=== PATIENT | female | born 1975 | race Caucasian/White ===

== ENCOUNTER 2016-06-14 16:59 | Inpatient (IN) | payer OTHER ==
--- NOTE | ~2016-06-14 | HP ---
Unit #: [id number] #: [id number] Patient: LYRIC GERBER [id number] [place] [address] [id number] I MR#: [id number] NAME: LYRIC GERBER ROOM: P207 Age: 40 Sex: F Admission Date: 06/14/2016 : 1975 Attending Physician: Cipriano Gee M.D. Admitting Physician: Cipriano Gee M.D. Primary Care Physician: Generic Doctor Not In System HISTORY AND PHYSICAL HISTORY OF PRESENT ILLNESS Lyric is a 40-year-old male admitted on 06/14/2016 for detox from meth, opioids and cocaine. PAST MEDICAL HISTORY Current strep pharyngitis infection. PAST SURGICAL HISTORY Partial hysterectomy SOCIAL HISTORY Smokes 1 1/2 packs of cigarettes daily. Binge alcohol use and daily use of meth, pain pills, cocaine and marijuana. She is currently and living with her . FAMILY HISTORY Noncontributory. REVIEW OF SYSTEMS CONSTITUTIONAL: No fever or chills. HEENT: Denies any sore throat, ear pain or runny nose. CARDIOVASCULAR: Denies chest pain, irregular heart rhythm or palpitations. CHEST: Denies shortness of breath or cough. No hemoptysis. GASTROINTESTINAL: Denies nausea, vomiting, diarrhea or chronic constipation. ENDOCRINE: Denies history of increased thirst or urination. No recent significant weight loss or gain. GENITOURINARY: Denies dysuria, frequency, or hematuria. SKIN: Denies any rashes. HEMATOLOGIC: Denies history of increased bleeding or bruising. MUSCULOSKELETAL: Denies any hot, swollen joints. No generalized muscle pain. NEUROLOGIC: Denies problems with vision or speech. No frequent, severe headaches. No numbness, tingling or weakness in any extremities. Denies loss of bladder or bowel control. CURRENT MEDICATIONS Amoxicillin 500 mg p.o. t.i.d. ALLERGIES No known drug allergies. Unit #: [id number] #: [id number] Patient: LYRIC GERBER PHYSICAL EXAMINATION GENERAL: Alert, oriented, in no acute distress. VITAL SIGNS: Blood pressure 142/83, heart rate 70, respirations 20, temperature 97.9. HEIGHT: 4 foot 9 inches. WEIGHT: 107 pounds. SKIN: Warm and dry without rash or lesion. HEENT: Normocephalic. TMs not viewed. Oral and nasal passages clear. Conjunctivae clear. PERRLA. EOMs intact. NECK: Supple without lymphadenopathy or thyromegaly. HEART: Regular rate and rhythm without murmur. LUNGS: Clear. ABDOMEN: Soft, nontender, without masses or hepatosplenomegaly. : Not done. EXTREMITIES: No evidence of cyanosis, clubbing or edema. Moves all without focal deficit. NEUROLOGICAL: Grossly within normal limits. Cranial Nerves: II: Visual green are intact. III, IV AND : Extraocular movements are intact. Pupils are equal, round and reactive to light. V: Facial sensation is grossly normal. VII: Facial movements and expression are normal. VIII: Auditory acuity grossly intact. IX, X: Uvula is midline. Phonation is normal. XI: Patient shrugs shoulders and turns head normally. XII: Tongue protrudes in the midline. Sensory and Motor Function: Sensory and motor sensation is grossly normal. Motor: moves all extremities well. Coordination: Gait is normal. Deep Tendon Reflexes: Intact. IMPRESSION 1. Psychiatric admission. 2. Current strep pharyngitis. The patient is being treated with amoxicillin and her last dose is due this evening. RECOMMENDATIONS Psychiatric, per psychiatrist. MEDICAL: I see no contraindications to participating in facility's activities. MEDICAL PROGNOSIS Good. MEDICAL CONDITION Stable. Dictated by... Paola Ortiz/daniel TD: 06/15/2016 19:32 JOB #: [id number] Unit #: [id number] #: [id number] Patient: LYRIC GERBER HISTORY AND PHYSICAL Page 1 of 1 X ALICIA CAMARILLO APRN HISTORY AND PHYSICAL
--- NOTE | ~2016-06-14 | PN ---
Unit #: [id number] #: [id number] Patient: LEANDRA GERBER [id number] [facility] [address] [place] [address] [id number] I MR#: [id number] NAME: LEANDRA GERBER ROOM: P207 Age: 40 Sex: F Admission Date: 06/14/2016 : 1975 Attending Physician: Cipriano Gee M.D. Admitting Physician: Cipriano Gee M.D. Primary Care Physician: Generic Doctor Not In System [facility] PROGRESS NOTES DATE OF SERVICE: 06/15/2016 SUBJECTIVE Ms. Gerber is a 40-year-old white female who was seen today and chart was reviewed, and case was discussed with staff. She has been anxious, withdrawn, rather seclusive to herself. Meanwhile, she has been cooperative with treatment recommendation and has been complaining with persistent depressive symptoms and suicidal ideations. MENTAL STATUS EXAMINATION Young white female who was casually dressed with fair personal hygiene, appears to be in no acute distress or discomfort. She was awake and alert on interaction with intact orientation. Her mood was anxious with a congruent affect. She reports having suicidal ideation, but denies any homicidal ideation. Her insight and judgment remain slightly impaired. TREATMENT PLAN 1. We will continue on her current treatment protocol. We will monitor her response to medications and make further adjustments as needed. 2. We will continue to follow up. Dictated by... Tamir Hammond/justusl TD: 06/16/2016 13:05 JOB #: [id number] [facility] PROGRESS NOTES Page 1 of 1 X Cipriano Gee MD PROGRESS NOTE
--- NOTE | ~2016-06-14 | PA ---
Unit #: [id number] #: [id number] Patient: LEANDRA GERBER [id number] [facility] [address] [place] [address] [id number] I MR#: [id number] NAME: LEANDRA GERBER ROOM: [facility] Age: 40 Sex: F Admission Date: 06/14/2016 : 1975 Date of Assessment: Attending Physician: Cipriano Gee M.D. Admitting Physician: Cipriano Gee M.D. Primary Care Physician: Generic Doctor Not In System PSYCHIATRIC ASSESSMENT IDENTIFYING DATA Ms. Gerber is a 40-year-old white female, who is a resident of [place], [place] and is self-referred to the hospital on a voluntary basis and is accompanied by her . CHIEF COMPLAINT "I've addiction." HISTORY OF PRESENT ILLNESS Ms. Gerber is a 40-year-old white female, who was brought to the hospital by her stating that she has addiction to pain medications as she reports that she has been taking Lortab mg a day for the last 7 years and Klonopin 8 mg a day for the last 3 years and methamphetamine by smoking and snorting about half a gram daily for the last year and reports increasing depression, anxiety, irritability, and experiencing significant isolation, daily crying spells, no motivation, no energy, feelings of hopelessness and helplessness, but denies any suicidal ideations, intent, or plan. The patient reports that has been in the recovery for the past 6 months and encouraged her to come here to get treatment as she reports she overdosed two weeks ago and had to be hospitalized and was given Narcan. SUBSTANCE ABUSE HISTORY The patient has extensive history of substance abuse and dependence including alcohol, cannabis, cocaine, opioids, amphetamines, and benzodiazepines, and currently she reports that she has been mixing opioids, benzos, and methamphetamine on a regular basis. PAST PSYCHIATRIC HISTORY The patient has had a history of inpatient chemical dependency and psychiatric treatment at [facility] in 2013, and currently, she is not active in any treatment program, is not seeing a psychiatrist, not taking her psychotropic medications. PAST MEDICAL HISTORY The patient's medical history is insignificant. ALLERGIES No known medication allergies. PERSONAL AND SOCIAL HISTORY A 40-year-old white female, who reports that she is and lives at home with her and has fairly decent social support system. Unit #: [id number] #: [id number] Patient: LEANDRA GERBER MENTAL STATUS EXAMINATION Middle-aged white female, who was casually dressed with fair personal hygiene, appears to be in no acute distress or discomfort. She was awake and alert on interaction with intact orientation to time, place, and person. Her mood was anxious and depressed with a congruent affect. Her speech was slow and restricted in content. Her thought processes were disorganized with some looseness of associations and paranoid ideations. She denies any suicidal or homicidal ideations. Her insight and judgment remain significantly impaired. DIAGNOSTIC IMPRESSION Psychiatric: Major depressive disorder, recurrent, moderate, without psychotic features; opioid dependence, moderate and acute withdrawals; benzodiazepine dependence, moderate and acute withdrawals; methamphetamine dependence, moderate. Medical: None. Stressors: Moderate psychosocial stressors. TREATMENT PLAN 1. The patient has presented with history of substance abuse and mood disorder and has been decompensating and will need inpatient hospitalization for safety and stabilization. We will start her back on her home medications. We will adjust the medications and monitor response. 2. Supportive therapy was provided to the patient. 3. Safe, structured, and nourishing environment will be provided. ESTIMATED LENGTH OF STAY 5 to 7 days. ABILITY TO HELP SELF Limited. WILLINGNESS TO HELP SELF The patient appears to be willing to help self. STRENGTHS 1. Communicative. 2. Cooperative. PROBLEMS 1. Chronic chemical dependency. 2. Chronic dysphoric symptoms. 3. Poor social support system. DISCHARGE CRITERIA This will be contingent upon the patient's ability to go through detox without having any significant withdrawal symptoms as well as her ability to stay safe to herself, particularly after discharge from the hospital. Dictated by... Tamir Hammond/bud TD: 06/16/2016 01:15 JOB #: [id number] Unit #: [id number] #: [id number] Patient: LEANDRA GERBER PSYCHIATRIC ASSESSMENT Page 1 of 1 X Cipriano Gee MD X PSYCHIATRIC ASSESSMENT
--- NOTE | ~2016-06-14 | PN ---
Unit #: [id number] #: [id number] Patient: LEANDRA GERBER [id number] [facility] [address] [place] [address] [id number] I MR#: [id number] NAME: LEANDRA GERBER ROOM: P207 Age: 40 Sex: F Admission Date: 06/14/2016 : 1975 Attending Physician: Cipriano Gee M.D. Admitting Physician: Cipriano Gee M.D. Primary Care Physician: Generic Doctor Not In System [facility] PROGRESS NOTES DATE June 17, 2016 DISCUSSION Ms. Gerber is a 40-year-old white female, who was seen today and chart was reviewed and the case was discussed with the staff. She has been anxious, withdrawn, but has not shown any agitation or irritability, and has been cooperative with the treatment recommendations and has been taking the medications, and tolerating them fairly well with no reported side effects. MENTAL STATUS EXAMINATION Middle-aged white female, who was casually dressed with fair personal hygiene and appears to be in no acute distress or discomfort. She was awake and alert on interaction with intact orientation. Her mood is anxious with a congruent affect. The patient denies any suicidal or homicidal ideations. Her insight and judgment remain slightly impaired. TREATMENT PLAN 1. We will continue her on her current medications and treatment protocol, and will monitor her response to the medications, and make further adjustments as needed. 2. We will continue to followup. Dictated by... Tamir Hammond/jesse TD: 06/18/2016 05:23 JOB #: [id number] Unit #: [id number] #: [id number] Patient: LEANDRA GERBER PROGRESS NOTES Page 1 of 1 X Cipriano Gee MD PROGRESS NOTE
--- NOTE | ~2016-06-14 | PN ---
Unit #: [id number] #: [id number] Patient: LEANDRA GERBER [id number] [facility] [address] [place] [address] [id number] I MR#: [id number] NAME: LEANDRA GERBER ROOM: P207 Age: 40 Sex: F Admission Date: 06/14/2016 : 1975 Attending Physician: Cipriano Gee M.D. Admitting Physician: Cipriano Gee M.D. Primary Care Physician: Generic Doctor Not In System [facility] PROGRESS NOTES DATE 06/16/2016 DISCUSSION Ms. Gerber is a 40-year-old white female who was seen today, chart was reviewed and case was discussed with the staff. She appears to be doing much better and appears to be more comfortable than yesterday and states detox medicine has been working and she has been able to come out of her room and attend groups and has been able to socialize and interact. She is expressing desire to be able to go to prison rehab start from detox. MENTAL STATUS EXAMINATION Middle age black female who was casually dressed with fair personal hygiene and appears to be in no acute distress or discomfort. She was awake and alert with intact orientation. Her mood was anxious with a congruent affect. Patient denies any suicidal or homicidal ideation. Her insight and judgment remain slightly impaired. TREATMENT PLAN Will continue on current medications and treatment protocol. We will monitor response to medication and make further adjustments as needed. We will continue to follow up. Dictated by... Tamir Hammond/negrito TD: 06/17/2016 11:44 JOB #: [id number] Unit #: [id number] #: [id number] Patient: LEANDRA GERBER [facility] PROGRESS NOTES Page 1 of 1 X Cipriano Gee MD PROGRESS NOTE
--- NOTE | ~2016-06-14 | DS ---
Unit #: [id number] #: [id number] Patient: LEANDRA GERBER [id number] [facility] [address] [place] [address] [id number] I MR#: [id number] NAME: LEANDRA GERBER ROOM: [facility] Age: 40 Sex: F Admission Date: 06/14/2016 : 1975 Discharge Date: 06/18/2016 Attending Physician: Cipriano Gee M.D. Primary Care Physician: Generic Doctor Not In System DISCHARGE SUMMARY IDENTIFYING DATA Ms. Gerber is a 40-year-old white female, who is a resident of [place], [place], and was self-referred to the hospital on a voluntary basis and was accompanied by her . DISCHARGE DIAGNOSES Psychiatric: Major depressive disorder, recurrent, moderate, without psychotic features; opioid dependence, moderate and acute withdrawals; benzodiazepine dependence, moderate and acute withdrawals; methamphetamine dependence, moderate. Medical: None. Stressors: Moderate psychosocial stressors. HISTORY OF PRESENT ILLNESS Please see initial psychiatric evaluation for details. PAST PSYCHIATRIC HISTORY Please see initial psychiatric evaluation for details. PAST MEDICAL HISTORY Please see initial psychiatric evaluation for details. HOSPITAL COURSE The patient [facility] and was oriented to the hospital environment. Routine p.r.n. medications were initiated, and she was started on the detox protocol and was closely monitored. She was seen to be having some complicated and roughly detox symptoms and was able to show a fairly decent and therapeutic response with improvement in depression and anxiety and was wanting to go to a long-term rehab level of care and as such, it was decided that she will be discharged home and will continue treatment on an outpatient basis. DISCHARGE MEDICATIONS None. DISCHARGE CONDITION Stable. PROGNOSIS Fair. Dictated by... Unit #: [id number] #: [id number] Patient: LEANDRA GERBER Cipriano Gee M.D. IAA/modl TD: 06/18/2016 22:48 JOB #: [id number] DISCHARGE SUMMARY Page 1 of 1 X Cipriano Gee MD X DISCHARGE SUMMARY
--- NOTE | ~2016-06-14 | A ---
[facility] Nutrition Therapy DATE: 06/17/16 Patient: LEANDRA GERBER Physician: AFAIRF Address: [address] [place] [address] RD Room/Bed: [address], Zip: [place] [address] Admit Date: 06/14/16 Date of : [birth year] Height: 4 9 Weight: [phone] NUTRITIONAL ASSESSMENT: REASON: NUTRITION RISK POINT- UNINTENTIONAL WEIGHT LOSS PATIENT ADMITTED FOR DETOX PMH: CURRENT STREP PHARYNGITIS Anthropometrics: HT: 4'9", WT: 107#, BMI: 23.2 Labs: 06/15/16- CREA: 0.5, ALB: 3.4 Meds: VISTARIL, DETOX PROTOCOL Assessment: PATIENT IS A 40 Y/O FEMALE ADMITTED FOR DETOX. PATIENT IS CURRENTLY UNEMPLOYED, LIVES WITH HER , SMOKES 2 PPD, HAS DAILY USE OF MARIJUANA, COCAINE, METH, LORTABS, AND KLONOPIN, AND SHE HAS FREQUENT USE OF ETOH AND SUBOXONE. PATIENT HAS A HX OF INPATIENT CHEMICAL DEPENDENCY AND PSYCH TREATMENTS, AND IT IS NOTED THAT SHE HAS BEEN NON-COMPLIANT WITH HER MEDICATIONS. PATIENT STATED A POOR APPETITE WITH A 10# WEIGHT LOSS OVER LAST SEVERAL WEEKS, AND SHE HAS NOT BEEN SLEEPING. NURSING REPORTS FAIR PO INTAKES. PATIENT'S BMI IS WITHIN A HEALTHY RANGE, AND SHE IS 114% OF HER IBW. PATIENT IS ON A REGULAR DIET WITH NO CAFFEINE. THERE ARE NO SKIN OR GI ISSUES NOTED ATT. Dx: UNINTENTIONAL WEIGHT LOSS R/T CURRENT CONDITION, DRUG USE SAMI SELF-REPORTED WEIGHT LOSS, NUTRITIONAL RISK POINT Intervention: REGUALR DIET, MEDS PER MD, DETOX, PSYCH Monitoring, Evaluation and Goals: 1. ADEQUATE PO INTAKES >50% OF MEALS 2. PREVENT, CORRECT MICRO/MACRO NUTRIENT DEFICIENCIES MONITOR: WEIGHTS, LABS, PO/FLUID INTAKES Recommendations: 1. CONTINUE REGULAR DIET TOLERATED 2. ENCOURAGE ADEQUATE PO AND FLUID INTAKES RD TO F/U PER PROTOCOL AND PRN R/T PATIENT MILDLY COMPROMISED [facility] Nutrition Therapy DATE: 06/17/16 Patient: LEANDRA GERBER Physician: AFAIRF Address: [address] [place] [address] RD Room/Bed: [address], Zip: [place] [address] Admit Date: 04/28/17 Date of : [birth year] Height: 4 9 Weight: [phone] Respectfully, SURYA THAKUR, PINA, LD [employer] [facility] [employer] cc: client file
[2016-06-15 11:22] LABS: BASOPHIL# 0.1 X10e3 (0-0.3); EOSINOPHIL# 0.3 X10e3 (0-0.7); EOSINOPHIL% 3.1 % (0.0-7.0); HEMATOCRIT 47.3 % (35.0-45.0); HEMOGLOBIN 15.7 gm/dL (12.0-16.0); LYMPHOCYTE# 3.9 X10e3 (1.0-3.5); LYMPHOCYTE% 35.2 % (17.0-45.0); MEAN CELL VOLUME 94.6 FL (83-96); MEAN CORPUSCULAR HEMOGLOBIN 31.3 PG (28-34); MEAN CORPUSCULAR HGB CONC 33.1 g/dL (30-36); MEAN PLATELET VOLUME 7.6 FL (6.5-11.5); MONOCYTE# 0.6 X10e3 (0-1.0); MONOCYTE% 5.7 % (3.0-12.0); NEUTROPHIL# 6.1 X10e3 (1.5-7.1); PLATELET COUNT 399 X10e3 (140-420); RED CELL DISTRIBUTION WIDTH 12.5 % (11.0-15.5); WHITE BLOOD COUNT 11.1 X10e3 (4.0-10.5)
[2016-06-15 11:23] LABS: DIFF IND NO
[2016-06-15 12:22] LABS: ALBUMIN SERUM 3.4 g/dL (3.5-5.0); BILIRUBIN,TOTAL 0.7 mg/dL (0.2-2.0); CREATININE SERUM 0.5 mg/dL (0.6-1.4); GLOM FILT RATE Estimated 120.2 mL/min (>60); POTASSIUM 4.4 mmol/L (3.5-5.1); PROTEIN TOTAL SERUM 5.8 g/dL (6.0-8.3)
[2016-06-16 11:17] LABS: URINE APPEARANCE CLEAR; URINE BILIRUBIN NEG (NEG); URINE BLOOD NEG (NEG); URINE COLOR YELLOW; URINE GLUCOSE NEG (NEG); URINE KETONE NEG (NEG); URINE LEUKOCYTE ESTERASE NEG (NEG); URINE NITRATE NEG (NEG); URINE PH 6.5 (5-8); URINE PROTEIN NEG (NEG); URINE SPECIFIC GRAVITY 1.009 (1.003-1.035); URINE UROBILINOGEN 0.2 MG/DL (NEG)
[2016-06-16 11:27] LABS: AMPHETAMINE NEG (NEG); BARBITURATES NEG (NEG); BENZODIAZEPINES POS (NEG); COCAINE NEG (NEG); MARIJUANA POS (NEG); OPIATES NEG (NEG); TRICYCLIC ANTIDEPRESSANTS POS (NEG); U METHADONE NEG (NEG)
== END 2016-06-18 11:12 | disposition home or self-care (01) | DRG 885 ==
LOC: P2S 16:59
PROVIDERS: Psychiatry & Neurology Psychiatry
PROC: HZ2ZZZZ Detoxification Services for Substance Abuse Treatment (ICD-10-PCS; principal; 2016-06-14)
DX: F33.1 Major depressive disorder, recurrent, moderate (principal); F15.20 Other stimulant dependence, uncomplicated; F11.23 Opioid dependence with withdrawal; F13.239 Sedative, hypnotic or anxiolytic dependence with withdrawal, unspecified; Z90.711 Acquired absence of uterus with remaining cervical stump; F17.210 Nicotine dependence, cigarettes, uncomplicated
CPT/HCPCS: 80053; 80307; 81003; 84703; 85025; 86592

== ENCOUNTER 2016-08-05 16:00 | Inpatient (IN) | payer OTHER ==
--- NOTE | ~2016-08-05 | DS ---
Unit #: [id number] #: [id number] Patient: [facility]ERBER [id number] [facility] [address] [place] [address] [id number] MR#: [id number] NAME: LEANDRA GERBER ROOM: [facility] Age: 41 Sex: F Admission Date: 08/06/2016 : 1975 Discharge Date: 08/07/2016 Attending Physician: Cipriano Gee M.D. Primary Care Physician: Generic Doctor Not In System DISCHARGE SUMMARY IDENTIFYING DATA Ms. Gerber is a 40-year-old white female, who was self-referred to the hospital. DISCHARGE DIAGNOSES Psychiatric: Opioid dependence, moderate and acute withdrawals; opioid-induced mood disorder. Medical: None. Stressors: Moderate psychosocial stressors. HISTORY OF PRESENT ILLNESS Please see initial psychiatric evaluation for details. PAST PSYCHIATRIC HISTORY Please see initial psychiatric evaluation for details. PAST MEDICAL HISTORY Please see initial psychiatric evaluation for details. HOSPITAL COURSE The patient was admitted to the adult chemical dependency unit at [facility] and was oriented to the hospital environment. Routine p.r.n. medications were initiated, and she was started back her home medications and medications were adjusted and detox protocol was maintained; however, once detoxed, the patient decided that she wanted to leave and was denying any suicidal ideations, and as such, it was decided that she will be discharged home and will continue treatment on an outpatient basis. DISCHARGE MEDICATIONS None. DISCHARGE CONDITION Stable. PROGNOSIS Guarded. Dictated by... Tamir Hammond/justusl TD: 09/10/2016 23:24 Unit #: [id number] #: [id number] Patient: LEANDRA GERBER JOB #: [id number] DISCHARGE SUMMARY Page 1 of 1 X Cipriano Gee MD X DISCHARGE SUMMARY
--- NOTE | ~2016-08-05 | PA ---
Unit #: [id number] #: [id number] Patient: LEANDRA GERBER [id number] [facility] [address] [place] [address] [id number] I MR#: [id number] NAME: LEANDRA GERBER ROOM: P201 Age: 40 Sex: F Admission Date: 08/06/2016 : 1975 Date of Assessment: 08/07/2016 Attending Physician: Cipriano Gee M.D. Admitting Physician: Cipriano Gee M.D. Primary Care Physician: Generic Doctor Not In System PSYCHIATRIC ASSESSMENT IDENTIFYING DATA Ms. Gerber is a 40-year-old, , white female, who is a resident of [place], [place] and was brought to the hospital accompanied by her . CHIEF COMPLAINT "I needing to be here for detox." HISTORY OF PRESENT ILLNESS Ms. Gerber is a 40-year-old white female, who was brought to the hospital accompanied by her stating that she needs to detox and "I have been using 10-15 Neurontin a day and Lortab five a day and has been using cocaine and methamphetamine, I have been using pain pills for about one year before that I was sober for about 18 months. I last used 24 hours ago. I have been using cocaine for the past month and I do not know how much I overdosed about 2 months ago and cocaine I used about every 2 weeks and last use was 2 weeks ago or long and the last use of meth was about 2 months ago. The doctor got me on the Neurontin and I cannot get off them with restless legs syndrome, and I was going to buy them from people and right now I feel really hot and sweaty, I am sick to my stomach, I have diarrhea, and I have been vomiting last night, I did not sleep, about 3 hours, her withdrawals have been increasingly bad and really bad anxiety and started to shake more." She had a COWS score of 16 and was seen to be in significant distress and discomfort and does report some significant depression, anxiety, irritability, restlessness, feelings of hopelessness and helplessness, and has history of suicide attempt on overdose three years ago, though currently she denies any suicidal ideations, intent, or plan. SUBSTANCE ABUSE HISTORY The patient reports extensive history of substance abuse and dependence including alcohol, cannabis, cocaine, opioids, and methamphetamine, and benzodiazepines. PAST PSYCHIATRIC HISTORY The patient has not had any prior inpatient or outpatient psychiatric treatment. Review of the medical records indicate that currently she is not active in any treatment program, is not seeing a psychiatrist, and is not taking any psychotropic medications. PAST MEDICAL HISTORY The patient's medical history is insignificant. Unit #: [id number] #: [id number] Patient: LEANDRA GERBER ALLERGIES No known medication allergies. PERSONAL AND SOCIAL HISTORY A 40-year-old white female, who reports that she is and lives at home with her and has fairly decent social support system. MENTAL STATUS EXAMINATION Middle-aged white female, who was casually dressed with a fair personal hygiene, appears to be in no acute distress or discomfort. She was awake and alert on interaction with intact orientation. Her mood was anxious and depressed with a congruent affect. Her speech was slow and goal directed. Her thought processes were disorganized with some looseness of associations. She denies any suicidal or homicidal ideations and also denies any auditory or visual hallucinations. Her insight and judgment remain significantly impaired. DIAGNOSTIC IMPRESSION Psychiatric: Opioid dependence, moderate and acute withdrawals; methamphetamine dependence, moderate; opioid-induced mood disorder. Medical: None. Stressors: Moderate psychosocial stressors. TREATMENT PLAN 1. The patient has presented with history of mood disorder and substance abuse and has been decompensating and will need inpatient hospitalization for safety and stabilization. We will start her back on her home medications. We will adjust the medications and monitor response. 2. Supportive therapy was provided to the patient. 3. Safe, structured, and nourishing environment will be provided. ESTIMATED LENGTH OF STAY 5 to 7 days. ABILITY TO HELP SELF Limited. WILLINGNESS TO HELP SELF The patient appears to be willing to help self. STRENGTHS 1. Communicative. 2. Cooperative. PROBLEMS 1. Chronic dysphoric symptoms. 2. Poor social support system. DISCHARGE CRITERIA This will be contingent upon the patient's ability to show resolution of her depression and anxiety and her ability to go through detox without having any significant withdrawal symptoms as well as her ability to stay safe to herself, particularly after discharge from the hospital. Dictated by... Cipriano Gee M.D. Unit #: [id number] #: [id number] Patient: LEANDRA GERBER IAA/modl TD: 08/07/2016 13:13 JOB #: [id number] PSYCHIATRIC ASSESSMENT Page 1 of 1 X Cipriano Gee MD PSYCHIATRIC ASSESSMENT
--- NOTE | ~2016-08-05 | PN ---
Unit #: [id number] #: [id number] Patient: LEANDRA GERBER [id number] [facility] [address] [place] [address] [id number] MR#: [id number] NAME: LEANDRA GERBER ROOM: P201 Age: 40 Sex: F Admission Date: 08/06/2016 : 1975 Attending Physician: Cipriano Gee M.D. Admitting Physician: Cipriano Gee M.D. Primary Care Physician: Generic Doctor Not In System [facility] PROGRESS NOTES DATE 08/07/2016 DISCUSSION Ms. Gerber is a 40-year-old white female who was seen today and chart was reviewed and case was discussed with the staff. She has been anxious, withdrawn and seclusive to herself. Meanwhile, she has been cooperative and denies being in any acute distress or discomfort and that she and her are talking and planning leaving her and going to some other place. She denies any suicidal or homicidal ideations and as such we will consider discharge planning if the patient choses to do so. Dictated by... Tamir Hammond/daniel TD: 08/08/2016 02:52 JOB #: [id number] [facility] PROGRESS NOTES Page 1 of 1 X Cipriano Gee MD PROGRESS NOTE
--- NOTE | ~2016-08-05 | HP ---
Unit #: [id number] #: [id number] Patient: LYRIC GERBER [id number] [place] [address] [id number] MR#: [id number] NAME: LYRIC GERBER ROOM: P201 Age: 40 Sex: F Admission Date: 08/06/2016 : 1975 Attending Physician: Cipriano Gee M.D. Admitting Physician: Cipriano Gee M.D. Primary Care Physician: Generic Doctor Not In System HISTORY AND PHYSICAL HISTORY OF PRESENT ILLNESS Lyric is a 40-year-old admitted to [address] [place] [address] because of her continued polysubstance abuse which includes methamphetamine, opioids, and cocaine. PAST MEDICAL HISTORY History of polyillicit substance abuse. PAST SURGICAL HISTORY Hysterectomy. ALLERGIES No known drug allergies. SOCIAL HISTORY Smokes 2 packs per day. Describes herself as a binge drinker and admits to illicit substance abuse to include meth and opioids. FAMILY HISTORY Medically noncontributory. REVIEW OF SYSTEMS CONSTITUTIONAL: No fever or chills. HEENT: Denies any sore throat, ear pain or runny nose. CARDIOVASCULAR: Denies chest pain, irregular heart rhythm or palpitations. CHEST: Denies shortness of breath or cough. No hemoptysis. GASTROINTESTINAL: Denies nausea, vomiting, diarrhea or chronic constipation. ENDOCRINE: Denies history of increased thirst or urination. No recent significant weight loss or gain. GENITOURINARY: Denies dysuria, frequency, or hematuria. SKIN: Denies any rashes. HEMATOLOGIC: Denies history of increased bleeding or bruising. MUSCULOSKELETAL: Denies any hot, swollen joints. No generalized muscle pain. NEUROLOGIC: Denies problems with vision or speech. No frequent, severe headaches. No numbness, tingling or weakness in any extremities. Denies loss of bladder or bowel control. CURRENT MEDICATIONS Detox protocol. PHYSICAL EXAMINATION GENERAL: Alert, well nourished. No apparent distress. Unit #: [id number] #: [id number] Patient: LYRIC GERBER VITAL SIGNS: Blood pressure 130/88, heart rate 80, respirations 16, and temperature 98.6. WEIGHT: 107. HEIGHT: 4 feet 9 inches. SKIN: Warm and dry without rash or lesion. HEENT: Normocephalic. TMs not viewed. Oral and nasal passages clear. Conjunctivae clear. PERRLA. EOMs intact. NECK: Supple without lymphadenopathy or thyromegaly. HEART: Regular rate and rhythm without murmur. LUNGS: Clear. ABDOMEN: Soft, nontender. : Not done. EXTREMITIES: No evidence of cyanosis, clubbing or edema. Moves all without focal deficit. NEUROLOGICAL: Grossly within normal limits. Cranial Nerves: II: Visual green are intact. III, IV AND : Extraocular movements are intact. Pupils are equal, round and reactive to light. V: Facial sensation is grossly normal. VII: Facial movements and expression are normal. VIII: Auditory acuity grossly intact. IX, X: Uvula is midline. Phonation is normal. XI: Patient shrugs shoulders and turns head normally. XII: Tongue protrudes in the midline. Sensory and Motor Function: Sensory and motor sensation is grossly normal. Motor: moves all extremities well. Coordination: Gait is normal. Deep Tendon Reflexes: Intact. IMPRESSION Psychiatric admission. RECOMMENDATIONS PSYCHIATRIC: Per psychiatrist. MEDICAL: I see no contraindication to participate in this facility's activities. MEDICAL PROGNOSIS Good. MEDICAL CONDITION Stable. Dictated by... Na Chambers P.A.-C. for Tamir Interiano/parris TD: 08/07/2016 09:23 JOB #: [id number] Unit #: [id number] #: [id number] Patient: BUZZLYRIC HISTORY AND PHYSICAL Page 1 of 1 X Na Chambers HISTORY AND PHYSICAL
[2016-08-07 09:24] LABS: BASOPHIL# 0.1 X10e3 (0-0.3); BASOPHIL% 1.1 % (0-2.5); EOSINOPHIL# 0.2 X10e3 (0-0.7); EOSINOPHIL% 2.1 % (0.0-7.0); HEMATOCRIT 47.9 % (35.0-45.0); HEMOGLOBIN 16.2 gm/dL (12.0-16.0); LYMPHOCYTE# 4.6 X10e3 (1.0-3.5); LYMPHOCYTE% 42.6 % (17.0-45.0); MEAN CELL VOLUME 95.1 FL (83-96); MEAN CORPUSCULAR HEMOGLOBIN 32.2 PG (28-34); MEAN CORPUSCULAR HGB CONC 33.8 g/dL (30-36); MEAN PLATELET VOLUME 7.8 FL (6.5-11.5); MONOCYTE# 0.6 X10e3 (0-1.0); MONOCYTE% 5.2 % (3.0-12.0); NEUTROPHIL# 5.3 X10e3 (1.5-7.1); PLATELET COUNT 393 X10e3 (140-420); RED BLOOD COUNT 5.03 X10e (3.90-5.30); RED CELL DISTRIBUTION WIDTH 13.1 % (11.0-15.5); WHITE BLOOD COUNT 10.8 X10e3 (4.0-10.5)
[2016-08-07 09:30] LABS: DIFF IND NO
[2016-08-07 09:42] LABS: URINE APPEARANCE CLEAR; URINE BILIRUBIN NEG (NEG); URINE BLOOD NEG (NEG); URINE COLOR YELLOW; URINE GLUCOSE NEG (NEG); URINE KETONE NEG (NEG); URINE LEUKOCYTE ESTERASE NEG (NEG); URINE NITRATE NEG (NEG); URINE PH 6.5 (5-8); URINE PROTEIN NEG (NEG); URINE SPECIFIC GRAVITY 1.006 (1.003-1.035); URINE UROBILINOGEN 0.2 MG/DL (NEG)
[2016-08-07 09:52] LABS: ALBUMIN SERUM 4.3 g/dL (3.5-5.0); BILIRUBIN,TOTAL 1.4 mg/dL (0.2-2.0); BUN/CREATININE RATIO 16.25; CALCIUM SERUM 9.7 mg/dL (8.4-10.2); CREATININE SERUM 0.8 mg/dL (0.6-1.4); GLOM FILT RATE Estimated 91.7 mL/min (>60); POTASSIUM 4.5 mmol/L (3.5-5.1); PROTEIN TOTAL SERUM 7.1 g/dL (6.0-8.3)
[2016-08-07 10:31] LABS: AMPHETAMINE NEG (NEG); BARBITURATES NEG (NEG); BENZODIAZEPINES NEG (NEG); COCAINE NEG (NEG); MARIJUANA POS (NEG); OPIATES NEG (NEG); TRICYCLIC ANTIDEPRESSANTS NEG (NEG); U METHADONE NEG (NEG)
== END 2016-08-07 13:34 | disposition home or self-care (01) | DRG 897 ==
LOC: P2S 08-06 12:08
PROVIDERS: Psychiatry & Neurology Psychiatry
PROC: HZ2ZZZZ Detoxification Services for Substance Abuse Treatment (ICD-10-PCS; principal; 2016-08-06)
DX: F11.23 Opioid dependence with withdrawal (principal); F15.20 Other stimulant dependence, uncomplicated; F11.24 Opioid dependence with opioid-induced mood disorder; F17.210 Nicotine dependence, cigarettes, uncomplicated
CPT/HCPCS: 80053; 80307; 81003; 84703; 85025; 86592